=== PATIENT | female | born 1995 | race Caucasian/White ===

== ENCOUNTER 2024-04-24 04:38 | Inpatient (IN) ==
[2024-04-24] MEDS ORDERED: OXYTOCIN 30 UNITS/NSS 30 UNITS/500 ML BAG IV PRN (05:51)
[2024-04-24] MEDS ORDERED: LIDOCAINE 1% LOCAL 20 ML VIAL INFIL PRN (05:51)
--- NOTE | 2024-04-24 05:51 | Obstetrical Progress Note ---
Date of Service April 24, 2024 Assessment & Plan (1) PROM (premature rupture of membranes): Plan: 29yo Go @ 39+ weeks ROM at 03;00 hrs FHR ; CAT1 Ctx Minimal VE; gross pooling. Nitrazine +ve VE 1=2/thick /posterior Bedside sono; VT Plan admit anticipate delivery Results & Data Vital Signs (Past 12 Hours) Vital Signs Temp Pulse Resp BP 04/24/24 04:53 36.9 C 18 04/24/24 04:51 96 H 129/84
[2024-04-24] MEDS: miSOPROStoL 50 MCG TAB PO ONE (06:32)
[2024-04-24 06:34] LABS: Hematocrit (blood only) 39.6 % (37.0-47.0); Hemoglobin 14.1 g/dl (12.0-16.0); Mean Corpuscular Hemoglobin 31.5 pg (25.0-34.0); Mean Corpuscular Hgb Conc 35.6 g/dL (32.0-36.0); Mean Corpuscular Volume 88.4 fL (80.0-100.0); Platelet Count 237 K/uL (130-400); RDW Coefficient of Variation 13.8 % (11.5-14.5); RDW Standard Deviation 44.6 fL (36.4-46.3); Red Blood Count 4.48 M/uL (4.20-5.40); White Blood Count 11.35 K/ul (4.8-10.8)
[2024-04-24] MEDS ORDERED: miSOPROStoL 50 MCG TAB PO SCH (09:00)
[2024-04-24] MEDS: miSOPROStoL 50 MCG TAB ONE (11:29)
--- OUTSIDE RECORDS SUMMARY | 2024-04-24 12:04 | External Medical Summary | Summary of Care ---
Author Name Unknown Organization [facility] Address [address] [place] [address] Phone [phone] Care Team Providers Care Office Assistant Receptionist Name Role Phone Didier Katelyn Ramesh PA-C Primary Care Provider [phone] Reason for Visit * Reason Comments Non Stress Test Encounter Details Date Type Department Care Team (Late st Contact Info) Description 03/06/2024 12:00 PM EDT Office Visit Gynecology/Obstetric s [facility] [address] [facility] [place] [address] Brittani Cleveland CRNP [address] [place] [address] Buzz Non Stress Tests [facility] [address] [facility] [address] Encounter for supervision of normal first in third trimester*; Genital herpes simplex virus (HSV) infection in mother affecting ; Electrocution and nonfatal effects of electric current, initial encounter Allergies No known active allergiesdocumented as of this encounter (statuses as of 03/06/2024) Medications Medication Sig Dispensed Refills Start Date End Date Status valACYclovir (VALTREX) 1000 MG TabletIndications:Ge nital herpes One pill by mouth once a day 30 Tab 11 01/31/2019 Active Additional Information Patient not taking.Reported on 10/03/2023 28-0.8 MG Oral Tablet Take by mouth. Active Breast PumpIndications:Enco unter for supervision of normal first in third trimester For lactating mother to breastfeed 1 Each 02/28/2024 Active documented as of this encounter (statuses as of 03/06/2024) Active Problems Problem Noted Date Diagnosed Date Supervision of normal first 10/06/2023 Genital herpes simplex virus (HSV) infection in mother affecting 10/06/2023 Overview: Valtrex suppression at 36 wks Genital herpes 10/13/2010 Overview: ICD-10 update of inactive term ADVANCE DIRECTIVE INFORMATION 12/04/2006 Overview: Not applicable (under age of 18) Estimated Date of Delivery Comme nts Yes 04/24/2024 Based on Ultraso und documented as of this encounter (statuses as of 03/06/2024) Immunizations Name Administration Dates Next Due COVID-19 mRNA, LNP-s, No Pre serve, 2-Dose Series (Moderna) 02/12/2021,01/14/2021 DTaP Dipth/Tet/Acell Pertussis (Infanrix), Peds 04/08/1998,06/29/1994,1993,07/28,1993 HIB PRP-T, 4 Dose, PF, IM (H iberix, ActHib) 06/29/1994,1993,1993,05/05 Hepatitis B, 0-19 yrs 06/29/1994,1993,07/0 01/1993 MMR - Measles/Mumps/Rubella Vaccine 04/08/1998,1 1993 Meningococcal Conjugate Vacc ine (Menactra/Menveo) 04/29/2009 OPV - Polio Virus Vaccine (Oral) 998,06/29/1994,1993,05/05 PPD 09/08/2021,05/07/2015,12/15/2010 Seasonal Influenza, Split, I IV3, With Preserve, Inj 09/28/2010 TD, Preservative Free 01/31/2019 TDAP (age 10 and older)(Boostrix) 01/31/2024 TDAP, Age 7 and older, IM (Adacel) 12/04/2006 documented as of this encounter Social History Tobacco Use Types Packs/Day Years Used Date Smoking Tobacco: Never Smokeless Tobacco: Never Comments:non smoking home Alcohol Use Standard Drinks/Week Comments Not Currently 0 (1 standard drink = 0.6 oz pur e alcohol) socially AUDIT-C Answer Date Recorded Frequency of Alcohol Consumption 2-4 times a mon01/31/2019 Average Number of Drinks Not on file 019 Frequency of Binge Drinking Not on file 01/2019 PHQ-2 Answer Date Recorded PHQ-2 Score 0 07/01/2018 Hunger Vital Sign Answer Date Recorded Within the past 12 months, y ou worried that your food would run out before you got the money to buy more. Never true 09/24/19 24 Within the past 12 months, t he food you bought just didn't last and you didn't have money to get more. Never true 09/24/2023 [place] Depression Scale Answer Date Recorded [place] Depression Scale Total 2 10/06/2023 The thought of harming myself has occurred to me . Never 10/06/2023 Childcare Answer Date Recorded Do you feel overwhelmed with taking care of a child, family member or friend? No 09/24/2023 Does your family need help f inding childcare? (Household - for ages 0-17 years) Not on file 09/24/2023 Clothing Answer Date Recorded Have you been unable to get clothing when it was really needed? No 09/24/2023 Is your family able to get c lothes or diapers when needed? (Household - for ages 0-17 years) Not on file 09/24/2023 Personal Safety Answer Date Recorded Do you feel unsafe or have concerns for your saf ety? No 09/24/2023 Do you have concerns for you r family's safety? (Household - for ages 0-17 years) Not on file 09/24/2023 Utilities Answer Date Recorded Do you have trouble paying y our heating, water, or electric bill? No 09/24/2023 Is your family able to pay t he heat, water, or electric bill? (Household - for ages 0-17 years) Not on file 09/24/2023 Does your family have access to good internet? (Household - for ages 0-17 years) Not on file 09/24/2023 Employment Status Answer Date Recorded Are you unemployed or without regular income? No 09/24/2023 Does the household have a re gular source of income? (Household - for ages 0-17 years) Not on file 09/24/2023 Social Connections Answer Date Recorded How often do you feel lonely or isolated from th ose around you? Never 09/24/2023 Financial Resource Strain Answer Date R ecorded Do you have any trouble payi ng for your medications, or do you think you might in the future? No 09/24/2023 Does your family have troubl e paying for medicine? (Household - for ages 0-17 years) Not on file 09/24/2023 Transportation Needs Answer Date Record ed READ ONLY Do you have troubl e getting a ride to medical visits or work? Never True 09/24/2023 Does your family have a hard time getting a ride to doctors visits? (Household - for ages 0-17 years) Not on file 09/24/2023 Has lack of transportation k ept you from medical appointments, meetings, work, or from getting things needed for daily living? Check all that apply. (Adult - for ages 18 years and over) Not on file 09/24/2023 Do you (or your family) have trouble finding or paying for a ride (transportation)? (Household - for ages 0-17 years) Not on file 09/24/2023 Housing Stability Answer Date Recorded Do you currently live in a s helter or have no steady place to sleep at night? No 09/24/2023 READ ONLY Do you think you a re at risk of becoming homeless? No 09/24/2023 Does your family worry about paying for your home or becoming homeless? (Household - for ages 0-17 years) Not on file 0 09/24/2023 Are you homeless or worried that you might be in the future? (Adult - for ages 18 years and over) Not on file Are you (or your family) rachel eless or worried that you might be in the future? (Household - for ages 0-17 years) Not on file Food Insecurity Answer Date Recorded Do you need food for this week? No 09/24/2023 Are you able to get enough f ood for your family? (Household - for ages 0-17 years) Not on file 09/24/2023 Does your family need food t his week? (Household - for ages 0-17 years) Not on file 09/24/2023 Do you always have enough fo od for your family? (Household - for ages 0-17 years) Not on file 09/24/2023 Estimated Date of Delivery Comme nts Yes 04/24/2024 Based on Ultraso und Sex and Gender Information Value Date Recorded Sex Assigned at Female 09/24/2023 1:38 PM EST Gender Identity Female 09/24/2023 1:32 PM EST Sexual Orientation Straight 09/24/2023 1: 32 PM EST Job Start Date Occupation Industry Not on file Not on file Not on file documented as of this encounter Progress Notes * Brittani Cleveland CRNP - 03/06/2024 12:18 PM EDT ASSESSMENT assessment with Non-stress Test completed on 03/06/2024 at 33 weeks gestation for indication of electric shock earlier today. Pt was advised by nursing to contact her PCP for follow up recommendations. heart baseline: 130 bpm Variability: Moderate Decelerations: absent Accelerations: present Contractions: None NST start time: 1218 NST stop time: 1244 NST strip reviewed, interpreted, and approved by OB provider, JUVENAL Hayes . NST strip stored in clinic storage file documented in this encounter Plan of Treatment Upcoming Encounters Date Type Department Care Team (Late st Contact Info) Description 03/20/2024 9:45 AM EDT Office Visit Gynecology/Obstetrics [facility] [address] [address] Azra York CRNP [address] [address] Health Maintenance Due Date Last Done Comments HPV (Gardasil) Vaccine (3 - 3-dose series) 08/07/2014 04/16/2014 (Refused), 02/05/2014 (Refused) Depression Screening 07/21/2018 07/21/2017 (Discusse d) HPV/Co-Test 2023 COVID-19 Vaccine ( season) 2023 02/12/2021, 01/14/2021 Influenza Vaccine (FLU shot) (#1) 2024 07/21/2017 (Refused), 09/28/2010 Cervical Cancer Screening 09/08/2024 Pap Smear 09/08/2024 09/08/2021, 06/29, 07/21/2017, Additional history exists DTaP,Tdap,and Td Vaccines (9 - Td or Tdap) 01/30/2034 01/31/2024, 01/31/2019, 12/04/2006, Additional history exists Hepatitis B Vaccine Completed 06/29/1994, 1993, 1993 MENINGOCOCCAL (MENACTRA/MENVEO) Completed 04/29/2009 Pneumococcal Vaccine: Pediatrics (0 to 5 Years) and At-Risk Patients (6 to 64 Years) Aged Out No longer eligible based on patient's age to complete this topic documented as of this encounter Medical Devices Not on filedocumented as of this encounter Visit Diagnoses Diagnosis Encounter for supervision of normal first in third trimester- Primary Supervision of normal first Genital herpes simplex virus (HSV) infection in mother affecting Electrocution and nonfatal effects of electric current, initial encounter documented in this encounter Care Teams Office Assistant Receptionist Relationship Specialty Start Date End Date Katelyn Velásquez PA-C [facility] [address] PCP - General Physician Armored Car Messenger 08/25/21 documented as of this encounter
--- OUTSIDE RECORDS SUMMARY | 2024-04-24 12:04 | External Medical Summary | Summary of Care ---
Author Name Unknown Organization [facility] Address [address] [place] [address] Phone [phone] Care Team Providers Care Parboiler Name Role Phone Didier Katelyn Ramesh PA-C Primary Care Provider [phone] Reason for Visit * Reason Comments Return Visit Encounter Details Date Type Department Care Team (Late st Contact Info) Description 03/20/2024 9:45 AM EDT Office Visit Gynecology/Obstetric s [facility] [address] [facility] [place] [address] Azra York CRNP [address] [place] [facility] [address] Encounter for supervision of normal first in third trimester*; Genital herpes simplex, unspecified site Allergies No known active allergiesdocumented as of this encounter (statuses as of 03/20/2024) Medications Medication Sig Dispensed Refills Start Date End Date Status 28-0.8 MG Oral Tablet Take by mouth. Active Breast PumpIndications:E ncounter for supervision of normal first in third trimester For lactating mother to breastfeed 1 Each 02/28/2024 Active valACYclovir HCl 500 MG Oral Tablet (Valtrex)Indicati ons:Genital herpes simplex, unspecified site Take 1 Tablet by mouth 2 times a day. 60 Tablet 2 03/20/2024 Active valACYclovir (VALTREX) 1000 MG TabletIndications :Genital herpes One pill by mouth once a day 30 Tab 11 01/31/2019 07/24/202 4 Discontinued documented as of this encounter (statuses as of 03/20/2024) Active Problems Problem Noted Date Diagnosed Date [...] as of this encounter (statuses as of 03/20/2024) Immunizations Name Administration Dates Next Due COVID-19 [...] money to get more. Never true 09/24/2023 [place] Depression Scale Answer Date Recorded [place] Depression Scale Total 2 10/06/2023 The thought [...] on file documented as of this encounter Last Filed Vital Signs Vital Sign Reading Time Taken Comments Blood Pressure 104/68 03/20/2024 9:45 AM EDT Pulse - - Temperature - - Respiratory Rate - - Oxygen Saturation - - Inhaled Oxygen Concentration - - Weight 78.5 kg (173 lb) 03/20/2024 9:45 AM EDT Height 162.6 cm (5' 4") 03/20/2024 9:45 AM EDT Body Mass Index 29.7 03/20/2024 9:45 AM EDT documented in this encounter Progress Notes * Azra York CRNP - 03/20/2024 10:11 AM EDT 35w No concerns. Baby is active. No cotnractions, bleeding, LOF. Valtrex sent to pharmacy, to begin taking BID next week. JUVENAL Edwards documented in this encounter Nursing Notes * Magdalena Adame LPN - 03/20/2024 9:49 AM EDT 35w0d Denies concerns documented in this encounter Plan of Treatment Upcoming Encounters Date Type Department Care Team (Late st Contact Info) Description 03/28/2024 1:15 PM EDT Office Visit Gynecology/Obstetrics [facility] [address] [place] [address] Rach Arias MD [address] [place] [id number] Health Maintenance Due Date Last Done Comments HPV (Gardasil) Vaccine (3 - 3-dose series) 08/07/2014 04/16/2014 (Refused), 02/05/2014 (Refused) Depression Screening 07/21/2018 07/21/2017 (Discusse d) HPV/Co-Test 2023 COVID-19 Vaccine (2022- season) 2023 02/12/2021, 01/14/2021 Influenza Vaccine (FLU [...] Primary Supervision of normal first Genital herpes simplex, unspecified site documented in this encounter Care Teams Parboiler Relationship Specialty Start Date End Date Didier Katelyn SONALI Ramesh [address] [place] [address] PCP - General Physician Local Hazmat Driver 08/25/21 documented as of this encounter
--- OUTSIDE RECORDS SUMMARY | 2024-04-24 12:04 | External Medical Summary ---
Author Name Unknown Address Unknown Organization K01:[facility] - [facility] [address] [place] [address] Laboratory Report Ordering Provider Test Date Status EROS ALMEIDA 03/28/2024 14:06:20 Final Observation Date Value Abnormality Reference (Units ) Status Streptococcus agalactiae DNA [Presence] in Specimen by DG with probe detection 03/28/2024 14:06:20 Negative Negative Final No Group B Streptococcus det ected by culture-enhanced PCR (amplified probe). GBS GBSCT - [facility] 03/28/2024 14:06:20 0.0 Final GBS SPCCT - [facility] 03/28/2024 14:06:20 31.5 Final Performing Location [facility] - [address] [place] [address]
--- OUTSIDE RECORDS SUMMARY | 2024-04-24 12:04 | External Medical Summary | Summary of Care ---
Author Name Unknown Organization [facility] Address [address] [place] [address] Phone [phone] Care Team Providers Care Multiple Tube Winding Machine Operator Name Role Phone Katelyn Velásquez PA-C Primary Care Provider [phone] Reason for Visit * Reason Onset Date Comments Leaking Fluid 04/24/2024 Encounter Details Date Type Department Care Team (Late st Contact Info) Description 04/24/2024 Telephone Gynecology/Obstetrics, [place] [address] [place] [address] Lula Chand, [facility] [address] [place] [address] Leaking Fluid Allergies No known active allergiesdocumented as of this encounter (statuses as of 04/24/2024) Medications Medication Sig Dispensed Refills Start Date End Date Status 28-0.8 MG Oral Tablet Take by mouth. Active Breast PumpIndications:Enco unter for supervision of normal first in third trimester For lactating mother to breastfeed 1 Each 02/28/2024 Active valACYclovir HCl 500 MG Oral Tablet (Valtrex)Indications :Genital herpes simplex, unspecified site Take 1 Tablet by mouth 2 times a day. 60 Tablet 2 03/20/2024 Active documented as of this encounter (statuses as of 04/24/2024) Active Problems Problem Noted Date Diagnosed Date [...] as of this encounter (statuses as of 04/24/2024) Immunizations Name Administration Dates Next Due COVID-19 [...] Frequency of Alcohol Consumption 2-4 times a mon 01/31/2019 Average Number of Drinks Not on file [...] money to get more. Never true 09/24/2023 [place] Depression Scale Answer Date Recorded [place] Depression Scale Total 2 10/06/2023 The thought [...] do you feel lonely or isolated from ose around you? Never 09/24/2023 Financial Resource [...] on file documented as of this encounter Miscellaneous Notes * Telephone Encounter - Lula Chand CNM - 04/24/2024 3:10 AM EDT Patient called the [facility] OB triage line with concern that her water broke. State she woke up to use the bathroom, voided, leaned back and "all of the sudden this extra big gush came out." She laid backdown and had another gush. States the fluid had "just a little bit of blood" in it. The fluid has continued to trickle, but is no longer bloody. Denies any contractions. States she had some pressure in the pelvic area yesterday evening. She is uncertain about movement at this exact moment butstates movement has been good up until now. She plans delivery at [facility]. Lives 30-45 minutes from [facility]. She lives further from [facility]. Recommended patient proceed to [facility] L+D now. Patient agreeable. I called [facility] L+D and spoke with staff member Sabrina. Julio Text message sent to Dr. Mar at 3:21am. Lula Chand CNM 04/24/24 3:23 AM documented in this encounter Plan of Treatment Upcoming Encounters Date Type Department Care Team (Late st Contact Info) Description 04/26/2024 10:45 AM EDT Office Visit Gynecology/Obstetrics [facility] [address] [place] [address] Azra York CRNP [address] [place] [place] [address] Health Maintenance Due Date Last Done Comments HPV (Gardasil) Vaccine (3 - 3-dose series) 08/07/2014 04/16/2014 (Refused), 02/05/2014 (Refused) Depression Screening 07/21/2018 07/21/2017 (Discusse d) HPV/Co-Test 2023 COVID-19 Vaccine ( season) 2023 02/12/2021, 01/14/2021 Influenza Vaccine (FLU shot) (#1) 2024 07/21/2017 (Refused), 09/28/2010 Cervical Cancer Screening 09/08/2024 Pap Smear 09/08/2024 09/08/2021, 06/29, 07/21/2017, Additional history exists DTap/Tdap Vaccines (9 - Td or Tdap) 01/30/2034 [...] Not on filedocumented as of this encounter Care Teams Multiple Tube Winding Machine Operator Relationship Specialty Start Date End Date DidierNovember SONALI Ramesh [address] [place] [address] PCP - General Physician Weigher Alloy 08/25/21 documented as of this encounter
--- OUTSIDE RECORDS SUMMARY | 2024-04-24 12:04 | External Medical Summary | Summary of Care ---
Author Name Unknown Organization [facility] Address [address] [place] [address] Phone [phone] Care Team Providers Care Pearl Stringer Name Role Phone Didier Katelyn Ramesh PA-C Primary Care Provider [phone] Reason for Visit * Reason Comments Return Visit Encounter Details Date Type Department Care Team (Late st Contact Info) Description 04/18/2024 12:15 PM EDT Office Visit Gynecology/Obstetric s [facility] [address] [facility] [place] [address] Azra York CRNP [address] [address] Encounter for supervision of normal first in third trimester*; Genital herpes simplex virus (HSV) infection in mother affecting Allergies No known active allergiesdocumented as of this encounter (statuses as of 04/18/2024) Medications Medication Sig Dispensed Refills Start Date [...] as of this encounter (statuses as of 04/18/2024) Active Problems Problem Noted Date Diagnosed Date [...] as of this encounter (statuses as of 04/18/2024) Immunizations Name Administration Dates Next Due COVID-19 mRNA, LNP-s, No Pre serve, 2-Dose Series (Moderna) 02/12/2021,01/14/2021 DTaP Dipth/Tet/Acell Pertussis (Infanrix), Peds 04/08/1998,06/29/1994,1993,07/28,1993 HIB PRP-T, 4 Dose, PF, IM (H iberix, ActHib) 06/29/1994,1993,1993,05/05 Hepatitis B, 0-19 yrs 06/29/1994,1993,1993 MMR - Measles/Mumps/Rubella Vaccine 04/08/1998,1 1993 Meningococcal [...] money to get more. Never true 09/24/2023 [place] Depression Scale Answer Date Recorded [place] Depression Scale Total 2 10/06/2023 The thought [...] Sign Reading Time Taken Comments Blood Pressure 102/68 04/18/2024 12:27 PM EDT Pulse - - Temperature - - Respiratory Rate - - Oxygen Saturation - - Inhaled Oxygen Concentration - - Weight 83.5 kg (184 lb) 04/18/2024 12:27 PM EDT Height - - Body Mass Index 31.58 03/20/2024 9:45 AM EDT documented in this encounter Progress Notes * Azra York CRNP - 04/18/2024 12:38 PM EDT 39w1d Has no concerns today. Some pelvic pressure/heaviness. Baby is active. No regular contractions. Denies bleeding, LOF. Taking valtrex as directed. IOL 05/01. JUVENAL Edwards * Candida Albarran LPN - 04/18/2024 12:27 PM EDT 39w1d Denies vaginal bleeding/rom + movement documented in this encounter Plan of Treatment Upcoming Encounters Date Type Department Care Team (Late st Contact Info) Description 04/26/2024 10:45 AM EDT Office Visit Gynecology/Obstetrics [facility] [address] [address] Azra York CRNP [address] [place] [address] Health Maintenance Due Date Last Done Comments HPV (Gardasil) Vaccine (3 - 3-dose series) 08/07/2014 04/16/2014 (Refused), 02/05/2014 (Refused) Depression Screening 07/21/2018 07/21/2017 (Discusse d) HPV/Co-Test 2023 COVID-19 Vaccine (3 - season) 2023 02/12/2021, 01/14/2021 Influenza Vaccine (FLU [...] simplex virus (HSV) infection in mother affecting documented in this encounter Care Teams Pearl Stringer Relationship Specialty Start Date End Date Katelyn Velásquez PA-C [address] [place] [address] PCP - General Physician Utilization Coordinator 08/25/21 documented as of this encounter
--- OUTSIDE RECORDS SUMMARY | 2024-04-24 12:04 | External Medical Summary | Summary of Care ---
Author Name Unknown Organization [facility] Address [address] [place] [address] Phone [phone] Care Team Providers Care Roll Grinder Operator Name Role Phone Katelyn Velásquez PA-C Primary Care Provider [phone] Reason for Visit * Reason Comments Return Visit Encounter Details Date Type Department Care Team ([facility] st Contact Info) Description 03/28/2024 1:15 PM EDT Office Visit Gynecology/Obstetric [facility] [address] [facility] [place] [address] Rach Arias MD [address] [facility] [place] [address] 36 weeks gestation of *; Genital herpes simplex virus (HSV) infection in mother affecting Allergies No known active allergiesdocumented as of this encounter (statuses as of 03/28/2024) Medications Medication Sig Dispensed Refills Start Date [...] as of this encounter (statuses as of 03/28/2024) Active Problems Problem Noted Date Diagnosed Date [...] as of this encounter (statuses as of 03/28/2024) Immunizations Name Administration Dates Next Due COVID-19 [...] money to get more. Never true 09/24/2023 [place] Depression Scale Answer Date Recorded [place] Depression Scale Total 2 10/06/2023 The thought [...] Sign Reading Time Taken Comments Blood Pressure 110/74 03/28/2024 1:47 PM EDT Pulse - - Temperature - - Respiratory Rate - - Oxygen Saturation - - Inhaled Oxygen Concentration - - Weight 80.3 kg (177 lb) 03/28/2024 1:47 PM EDT Height - - Body Mass Index 30.38 03/20/2024 9:45 AM EDT documented in this encounter Progress Notes * Rach Arias MD - 03/28/2024 1:51 PM EDT Rola Knox is a 29 year old female here for her routine OB appointment at 36w1d. Patient complains of pelvic pressure. Her Estimated Date of Delivery: 04/24/24 REVIEW OF SYSTEMS: She affirms movement. Denies vaginal bleeding, LOF, regular contractions, N/V, headaches [place] Depression Scale: No data recorded [place] suicide question and score: Score of 3 = Yes, quite often. Score of 2 = Sometimes. Score of 1 = Hardly ever No data recorded PHYSICAL EXAM: Filed Vitals: 03/28/24 1347 BP: 110/74 Weight: 80.3 kg (177 lb) +FHT 154 bpm Fundal height 38cm ASSESSMENT/PLAN: (O98.319, A60.09) Genital herpes simplex virus (HSV) infection in mother affecting Plan: Patient is taking valtrex. (Z3A.36) 36 weeks gestation of (primary encounter diagnosis) Plan: GROUP B STREP CULTURE/PCR - Figurine Maker Mattie Claros - labor precautions and kick counts reviewed - RTO in 1 week Rach Arias MD * Mattie Claros MED ASSIST - 03/28/2024 1:47 PM EDT 36w1d Increased pelvic pressure GBS today documented in this encounter Plan of Treatment Pending Results Name Type Priority Associated Diagnoses Date /Time GROUP B STREP CULTURE/PCR Lab Routine 36 weeks gestation of 03/28/2024 2:06 PM EDT Scheduled Orders Name Type Priority Associated Diagnoses Orde r Schedule GROUP B STREP CULTURE/PCR Lab Routine 36 weeks gestation of Expected: 03/28/2024, Expires: 03/28/2025 Health Maintenance Due Date Last Done Comments [...] as of this encounter Visit Diagnoses Diagnosis 36 weeks gestation of - Primary state, incidental Genital herpes simplex virus (HSV) infection in mother affecting documented in this encounter Care Teams Roll Grinder Operator Relationship Specialty Start Date End Date Didier November Domitila, SONALI [address] [place] [address] PCP - General Physician Estimator And Drafter 08/25/21 documented as of this encounter
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
--- OUTSIDE RECORDS SUMMARY | 2024-04-24 12:05 | External Medical Summary | Summary of Care ---
Author Name Unknown Organization [facility] Address [address] [place] [address] Phone [phone] Care Team Providers Care Sample Prep Technician Name Role Phone Katelyn Velásquez PA-C Primary Care Provider [phone] Reason for Visit * Reason Onset Date Comments Advice 08/24/2023 Encounter Details Date Type Department Care Team ([facility] st Contact Info) Description 08/24/2023 Telephone Family Practice [facility] [address] [place] [address] Katelyn Velásquez PA-C [address] [place] [address] Advice Allergies No known active allergiesdocumented as of this encounter (statuses as of 11/23/2023) Medications Medication Sig Dispensed Refills Start Date End Date Status valACYclovir (VALTREX) 1000 MG TabletIndications:Ge nital herpes One pill by mouth once a day 30 Tab 11 01/31/2019 Active Additional Information Patient not taking.Reported on 10/03/2023 documented as of this encounter (statuses as of 11/23/2023) Active Problems Problem Noted Date Diagnosed Date Supervision of normal first 10/06/2023 Genital herpes simplex virus (HSV) infection in mother affecting 10/06/2023 Overview: Valtrex suppression at 36 wks Genital herpes 10/13/2010 Overview: ICD-10 update of inactive term ADVANCE DIRECTIVE INFORMATION 12/04/2006 Overview: Not applicable (under age of 18) documented as of this encounter (statuses as of 11/23/2023) Immunizations Name Administration Dates Next Due COVID-19 mRNA, LNP-s, No Pre serve, 2-Dose Series (Moderna) 02/12/2021,01/14/2021 DTaP Dipth/Tet/Acell Pertussis (Infanrix), Peds 04/08/1998,06/29/1994,1993,07/28,1993 HIB PRP-T, 4 dose (ActHib) 06/29/1994,,1993,05/05 Hepatitis B, 0-19 yrs 06/29/1994,1993,07/0 01/1993 MMR - Measles/Mumps/Rubella Vaccine 04/08/1998,1 1993 Meningococcal Conjugate Vacc ine (Menactra/Menveo) 04/29/2009 OPV - Polio Virus Vaccine (Oral) 998,06/29/1994,1993,05/05 PPD 09/08/2021,05/07/2015,12/15/2010 Seasonal Influenza, Split, I IV3, With Preserve, Inj 09/28/2010 TD, Preservative Free 01/31/2019 TDAP (age 11 and older)(Adacel) 12/04/2006 documented as of this encounter Social History Tobacco Use Types Packs/Day Years Used Date Smoking Tobacco: Never Smokeless Tobacco: Never Comments:non smoking home Alcohol Use Standard Drinks/Week Comments Yes 0 (1 standard drink = 0.6 oz [...] the money to buy more. Never true 01/28/20 24 Within the past 12 months, t he food you bought just didn't last and you didn't have money to get more. Never true 09/24/2023 [place] Depression Scale Answer Date Recorded [place] Depression Scale Total 2 10/06/2023 The thought of harming myself has occurred to me . Never 10/06/2023 Sex and Gender Information Value Date Recorded Sex Assigned at Female 09/24/2023 1:38 PM EST Gender Identity Female 09/24/2023 1:32 PM EST Sexual Orientation Straight 09/24/2023 1: 32 PM EST Job Start Date Occupation Industry Not on file Not on file Not on file documented as of this encounter Miscellaneous Notes * Telephone Encounter - Nydia Matthew OSA - 08/25/2023 11:15 AM EST Patient has been notified of the message. Patient has no further questions. * Telephone Encounter - Katelyn Velásquez PA-C - 08/24/2023 7:13 PM EST Over the counter could try dramamine * Telephone Encounter - Nydia Matthew OSA - 08/24/2023 2:55 PM EST Pt called inquiring for advice on what would be the best medication to take for anxiety for a planeride? Would like a call back documented in this encounter Plan of Treatment Upcoming Encounters Date Type Department Care Team (Late st Contact Info) Description 12/01/2023 10:45 AM EDT Imaging Radiology [facility] [address] [address] 12/01/2023 11:45 AM EDT Office Visit Gynecology/Obstetrics [facility] [address] [place] [address] Lory Ron PA-C [address] [place] [address] Health Maintenance Due Date Last Done Comments GARDASIL-HPV IMMUNIZATION SERIES (3 - 3-dose series) 08/07/2014 04/16/2014 (Refused), 02/05/2014 (Refused) Depression Screening 07/21/2018 07/21/2017 (Discusse d) HPV/Co-Test 2023 COVID-19 Vaccine ( season) 2023 02/12/2021, 01/14/2021 Influenza Vaccine (FLU shot) (#1) 2023 07/21/2017 (Refused), 09/28/2010 Cervical Cancer Screening 09/08/2024 Pap Smear 09/08/2024 09/08/2021, 06/29, 07/21/2017, Additional history exists DTaP,Tdap,and Td Vaccines (8 - Td or Tdap) 01/31/2029 01/31/2019, 12/04/2006, 04/08/1998, Additional history exists Hepatitis B Completed 06/29/1994, 03/1993, 1993 MENINGOCOCCAL (MENACTRA/MENVEO) Completed 04/29/2009 Pneumococcal Vaccine: Pediatrics (0 to 5 Years) and At-Risk Patients (6 to 64 Years) Aged Out No longer eligible based on patient's age to complete this topic documented as of this encounter Medical Devices Not on filedocumented as of this encounter Care Teams Sample Prep Technician Relationship Specialty Start Date End Date Didier Katelyn SONALI Ramesh [address] [place] [address] PCP - General Physician Grey Tender 08/25/21 documented as of this encounter
--- OUTSIDE RECORDS SUMMARY | 2024-04-24 12:05 | External Medical Summary ---
Author Name Unknown Address Unknown Organization K01:[facility] [address] [place] [address] Laboratory Report Ordering Provider Test Date Status ANDREWURBANO 01/31/2024 11:23:26 Final Observation Date Value Abnormality Reference (Units ) Status SYNC LEUKOCYTES IN BLOOD BY AUTOMATED COUNT 01/31/2024 11:23:26 11.68 Above high normal 4.00-10.80 (K/uL) Final Segs 01/31/2024 11:23:26 70.3 40.0-75.0 (%) Final Lymphs % 01/31/2024 11:23:26 18.1 18.0-42.0 (%) Final Monos 01/31/2024 11:23:26 7.2 1.0-11.0 (%) Final Eosinophils 01/31/2024 11:23:26 2.7 0.0-6.0 (%) Final Basos 01/31/2024 11:23:26 0.4 0.0-2.0 (%) Final Immature Granulocyte, Percent 01/31/2024 11:23:26 1.3 0.0-2.0 (%) Final Absolute Segs 01/31/2024 11:23:26 8.22 Above high normal 1.80-7.70 (K/uL) Final Lymphs, absolute 01/31/2024 11:23:26 2.11 1.00-4.80 (K/ul) Final Monos, Abs 01/31/2024 11:23:26 0.84 0.00-1.10 (K/uL) Final Eos, Abs 01/31/2024 11:23:26 0.31 0.00-0.70 (K/uL) Final Basos, Abs 01/31/2024 11:23:26 0.05 0.00-0.20 (K/uL) Final Immature Granulocytes, Number 01/31/2024 11:23:26 0.15 0.00-0.20 (K/uL) Final Performing Location [facility] - [address] [facility] [address]
--- OUTSIDE RECORDS SUMMARY | 2024-04-24 12:05 | External Medical Summary | Summary of Care ---
Author Name Unknown Organization [facility] Address [address] [place] [address] Phone [phone] Care Team Providers Care Roller Skate Assembler Name Role Phone Didier Katelyn Ramesh PA-C Primary Care Provider [phone] Reason for Visit * Reason Comments Return Visit Encounter Details Date Type Department Care Team (Late st Contact Info) Description 11/03/2023 11:45 AM EST Office Visit Gynecology/Obstetric s [facility] [address] [place] [address] Lory Ron PA-C [address] [facility] [place] [address] Encounter for supervision of other normal in second trimester*; Genital herpes simplex virus (HSV) infection in mother affecting Allergies No known active allergiesdocumented as of this encounter (statuses as of 11/03/2023) Medications Medication Sig Dispensed Refills Start Date End Date Status valACYclovir (VALTREX) 1000 MG TabletIndications:Ge nital herpes One pill by mouth once a day 30 Tab 11 01/31/2019 Active Additional Information Patient not taking.Reported on 10/03/2023 28-0.8 MG Oral Tablet Take by mouth. 0 Active documented as of this encounter (statuses as of 11/03/2023) Active Problems Problem Noted Date Diagnosed Date [...] as of this encounter (statuses as of 11/03/2023) Immunizations Name Administration Dates Next Due COVID-19 [...] money to get more. Never true 09/24/2023 [place] Depression Scale Answer Date Recorded [place] Depression Scale Total 2 10/06/2023 The thought of harming myself has occurred to me . Never 10/06/2023 Estimated Date of Delivery Comme nts Yes [...] Sign Reading Time Taken Comments Blood Pressure 104/76 11/03/2023 11:37 AM EST Pulse - - Temperature - - Respiratory Rate - - Oxygen Saturation - - Inhaled Oxygen Concentration - - Weight 69.9 kg (154 lb) 11/03/2023 11:37 AM EST Height 162.6 cm (5' 4") 11/03/2023 11:37 AM EST Body Mass Index 26.43 11/03/2023 11:37 AM EST documented in this encounter Progress Notes * Lory Ron PA-C - 11/03/2023 12:04 PM EST 15w2d Denies concerns. Declines genetic testing including NIPT and MSAFP at this time. Plan for anatomy next visit 19-20 wks RTC in 4 weeks Lory Ron PA-C documented in this encounter Plan of Treatment Upcoming Encounters Date Type Department Care Team (Late st Contact Info) Description 12/01/2023 10:45 AM EDT Imaging Radiology [address] [place] [address] 12/01/2023 11:45 AM EDT Office Visit Gynecology/Obstetrics [facility] [address] [place] [address] Lory Ron PA-C [address] [place] [address] Scheduled Orders Name Type Priority Associated Diagnoses Orde r Schedule US PREG SINGLE/1ST GEST, 14 WEEKS OR LATER Medical Imaging Routine Encounter for supervision of other normal in second trimester Expected: 12/04/2023, Expires: 12/03/2024 Health Maintenance Due Date Last Done Comments [...] Visit Diagnoses Diagnosis Encounter for supervision of other normal in second trimester- Primary Genital herpes simplex virus (HSV) infection in mother affecting documented in this encounter Care Teams Roller Skate Assembler Relationship Specialty Start Date End Date Katelyn Velásquez PA-C [address] [place] [address] PCP - General Physician Sheet Metal Duct Installer Apprentice 08/25/21 documented as of this encounter
--- OUTSIDE RECORDS SUMMARY | 2024-04-24 12:05 | External Medical Summary | Summary of Care ---
Author Name Unknown Organization [facility] Address [address] [place] [address] Phone [phone] Care Team Providers Care French Translator Name Role Phone Katelyn Velásquez PA-C Primary Care Provider [phone] Reason for Referral * Evaluate & Treat - Unlimited Visits (Within 10 days (routine)) - Pending Review Specialty Diagnoses / Procedures Referred By Ramon ulloa Referred To Contact Behavioral Medicine / Psychology Diagnoses Supervision of normal first Lula Chand CNM [address] [place] [address] DEPT CLOSED - 06/30/22 [address] [place] [address] Referral ID Status Reason Start Date Expiration Date Visits Requested Visits Authorized [id number] Pending Review Specialty Services Required 01/01/[phone] Question Answer Referral Priority Within 10 days (routine) [facility] this [facility] be scheduled? [facility] Comments Patient struggling with weight gain, body changes, body image in as she is fit and has always been thin prior to . Reason for Visit * Reason Comments Return Visit Encounter Details Date Type Department Care Team (Late st Contact Info) Description 01/01/2024 1:45 PM EDT Office Visit Gynecology/Obstetric s [address] [place] [address] Chand, Lula E, [address] [place] [address] Encounter for supervision of normal first in third trimester*; Genital herpes simplex virus (HSV) infection in mother affecting Allergies No known active allergiesdocumented as of this encounter (statuses as of 01/01/2024) Medications Medication Sig Dispensed Refills Start Date End Date Status valACYclovir (VALTREX) 1000 MG TabletIndications:Ge nital herpes One pill by mouth once a day 30 Tab 11 01/31/2019 Active Additional Information Patient not taking.Reported on 10/03/2023 28-0.8 MG Oral Tablet Take by mouth. 0 Active documented as of this encounter (statuses as of 01/01/2024) Active Problems Problem Noted Date Diagnosed Date [...] as of this encounter (statuses as of 01/01/2024) Immunizations Name Administration Dates Next Due COVID-19 mRNA, LNP-s, No Pre serve, 2-Dose Series (Moderna) 02/12/2021,01/14/2021 DTaP Dipth/Tet/Acell Pertussis (Infanrix), Peds 04/08/1998,06/29/1994,1993,07/28,1993 HIB PRP-T, 4 dose (ActHib) 06/29/1994,,1993,05/05 Hepatitis B, 0-19 yrs 06/29/1994,1993,01/1993 MMR - Measles/Mumps/Rubella Vaccine 04/08/1998,1 1993 Meningococcal [...] money to get more. Never true 09/24/2023 [place] Depression Scale Answer Date Recorded [place] Depression Scale Total 2 10/06/2023 The thought [...] Sign Reading Time Taken Comments Blood Pressure 112/62 01/01/2024 1:56 PM EDT Pulse - - Temperature - - Respiratory Rate - - Oxygen Saturation - - Inhaled Oxygen Concentration - - Weight 74.4 kg (164 lb) 01/01/2024 1:56 PM EDT Height - - Body Mass Index 28.15 12/01/2023 11:02 AM EDT documented in this encounter Progress Notes * Lula Chand CNM - 01/01/2024 2:05 PM EDT Rola Knox is a 28 year old female here for her routine OB appointment at 23w5d Her Estimated Date of Delivery: 04/24/24 REVIEW OF SYSTEMS: She affirms movement. Denies vaginal bleeding, LOF, contractions, N/V, headaches, vision changes, and RUQ pain. Asking about mental health and weight gain. She is anxious about the bodily changes as she feels that she is only just over jail through . Works on a horse farm. Has always been fit and thin. Reports rectal itching which has resolved. PHYSICAL EXAM: Filed Vitals: 01/01/24 1356 BP: 112/62 Weight: 74.4 kg (164 lb) +FHT 140-150bpm Fundal height: 24cm ASSESSMENT/PLAN: (O98.319, A60.09) Genital herpes simplex virus (HSV) infection in mother affecting (Z34.00) Supervision of normal first (primary encounter diagnosis) Plan: - reviewed and ordered GTT, syphilis screen, and CBC for patient to complete between now and her next visit - reviewed recommendation for tdap vaccine at next visit - women's behavioral health referral placed -recommended childbirth education classes - RTO in 4 weeks Lula Chand CNM documented in this encounter Plan of Treatment Upcoming Encounters Date Type Department Care Team (Late st Contact Info) Description 01/31/2024 10:00 AM EDT Laboratory Laboratory, [facility] [address] [id number] Gudelia [facility] [address] [place] [address] 01/31/2024 10:30 AM EDT Office Visit Gynecology/Obstetrics [facility] [address] [place] [address] Azra York CRNP [address] [place] [address] Scheduled Orders Name Type Priority Associated Diagnoses Orde r Schedule CBC WITH WBC DIFFERENTIAL AND ANEMIA REFLEX WORKUP Lab Routine Encounter for supervision of normal first in third trimester Expected: 02/01/2024 (Approximate), Expires: 12/31/2024 SYPHILIS ANTIBODY SCREEN WITH REFLEX TO RPR Lab Routine Encounter for supervision of normal first in third trimester Expected: 02/01/2024 (Approximate), Expires: 12/31/2024 50-G GESTATIONAL GLUCOSE, 1 HOUR Lab Routine Encounter for supervision of normal first in third trimester Expected: 02/01/2024 (Approximate), Expires: 12/31/2024 Scheduled Referrals Name Type Priority Associated Diagnoses Orde r Schedule [facility]OM[facility]'S [facility]AL [facility] REFERRAL OP Referral Within 10 days (routine) Encounter for supervision of normal first in third trimester Ordered: 01/01/2024 Health Maintenance Due Date Last Done Comments GARDASIL-HPV IMMUNIZATION SERIES (3 - 3-dose series) 08/07/2014 04/16/2014 (Refused), 02/05/2014 (Refused) Depression Screening 07/21/2018 07/21/2017 (Discusse d) HPV/Co-Test 2023 COVID-19 Vaccine ( season) 2023 02/12/2021, 01/14/2021 Influenza Vaccine (FLU shot) (Season Ended) 2024 07/21/2017 (Refused), 09/28/2010 Cervical Cancer Screening [...] affecting documented in this encounter Care Teams French Translator Relationship Specialty Start Date End Date Didier Katelyn SONALI Ramesh [address] [place] [address] PCP - General Physician Mechanical Engineering Technologist 08/25/21 documented as of this encounter
--- OUTSIDE RECORDS SUMMARY | 2024-04-24 12:05 | External Medical Summary | Summary of Care ---
Author Name Unknown Organization [facility] Address [address] [place] [address] Phone [phone] Care Team Providers Care Manager Ob Name Role Phone Didier Katelyn Ramesh PA-C Primary Care Provider [phone] Reason for Visit * Reason Comments Return Visit Encounter Details Date Type Department Care Team (Late st Contact Info) Description 01/31/2024 10:30 AM EDT Office Visit Gynecology/Obstetric s [facility] [address] [facility] [place] [address] Azra York CRNP [address] [place] [facility] [address] Encounter for supervision of normal first in third trimester*; Genital herpes simplex virus (HSV) infection in mother affecting Allergies No known active allergiesdocumented as of this encounter (statuses as of 01/31/2024) Medications Medication Sig Dispensed Refills Start Date End Date Status valACYclovir (VALTREX) 1000 MG TabletIndications:Ge nital herpes One pill by mouth once a day 30 Tab 11 01/31/2019 Active Additional Information Patient not taking.Reported on 10/03/2023 28-0.8 MG Oral Tablet Take by mouth. Active documented as of this encounter (statuses as of 01/31/2024) Active Problems Problem Noted Date Diagnosed Date [...] as of this encounter (statuses as of 01/31/2024) Immunizations Name Administration Dates Next Due COVID-19 [...] money to get more. Never true 09/24/[address] Depression Scale Answer Date Recorded [address] Depression Scale Total 2 10/06/2023 The thought [...] Sign Reading Time Taken Comments Blood Pressure 116/66 01/31/2024 10:22 AM EDT Pulse - - Temperature - - Respiratory Rate - - Oxygen Saturation - - Inhaled Oxygen Concentration - - Weight 77.6 kg (171 lb) 01/31/2024 10:22 AM EDT Height - - Body Mass Index 29.35 12/01/2023 11:02 AM EDT documented in this encounter Progress Notes * Azra York CRNP - 01/31/2024 10:36 AM EDT 28w0d Complaints: none Feeling well. Good FM. No contractions, bleeding, or LOF. TDAP, Glucola today. JUVENAL Edwards * Mattie Claros, MED ASSIST - 01/31/2024 10:22 AM EDT 28w0d Agreeable to TDAP today No concerns Vaginal bleeding: no ROM: no movement: present Contractions: no Nausea: no Vomiting: no Headaches: no documented in this encounter Nursing Notes * Magdalena Adame LPN - 01/31/2024 10:33 AM EDT Patient here for tdap injection. Patient doing well no complaints. Injection given IM as ordered. Patient tolerated well. Patient to follow up as directed. Patient instructed to call if any complications. Patient verbalized understanding of instructions given and her follow up appt for CHRISTINE Injection site: Left Deltoid Medication Source: Dispensed stock medication documented in this encounter Plan of Treatment Upcoming Encounters Date Type Department Care Team (Late st Contact Info) Description 02/14/2024 8:45 AM EDT [facility] [address] [place] [address] Brittani Cleveland CRNP [address] [place] [address] Health Maintenance Due Date Last Done Comments [...] 01/31/2019, 12/04/2006, Additional history exists Hepatitis B Completed 06/29/1994, [...] affecting documented in this encounter Care Teams Manager Ob Relationship Specialty Start Date End Date Didier November Domitila, [place] [place] [address] PCP - General Physician Patient Care Associate 08/25/21 documented as of this encounter
--- OUTSIDE RECORDS SUMMARY | 2024-04-24 12:05 | External Medical Summary ---
Author Name Unknown Address Unknown Organization [id number]:[place] [facility] [place] [address] [place] [address] Laboratory Report Ordering Provider Test Date Status JAI ALLEN 01/31/2024 11:23:26 Final Observation Date Value Abnormality Reference (Units ) Status MYCODE SPECIMEN-SST 01/31/2024 11:23:26 Freezing of extracted DNA, whole blood and/or serum. Final Performing Location LABORATORY C - [address] [place] [address]
--- OUTSIDE RECORDS SUMMARY | 2024-04-24 12:05 | External Medical Summary ---
Author Name Unknown Address Unknown Organization [id number]:LABORATORY [facility] [place] [address] [place] [address] Laboratory Report Ordering Provider Test Date Status JAI ALLEN 01/31/2024 11:23:26 Final Observation Date Value Abnormality Reference (Units ) Status MYCODE SPECIMEN-SST 01/31/2024 11:23:26 Freezing of extracted DNA, whole blood and/or serum. Final Performing Location [facility] - [address] [place] [address]
--- OUTSIDE RECORDS SUMMARY | 2024-04-24 12:05 | External Medical Summary | Summary of Care ---
Author Name Unknown Organization [facility] Address [address] [place] [address] Phone [phone] Care Team Providers Care Cinder Crew Worker Name Role Phone Didier Katelyn Ramesh PA-C Primary Care Provider [phone] Reason for Visit * Reason Comments Return Visit Encounter Details Date Type Department Care Team (Late st Contact Info) Description 02/14/2024 8:45 AM EDT Office Visit Gynecology/Obstetric s [facility] [address] [place] [address] Brittani Cleveland CRNP [address] [place] [address] Encounter for supervision of normal first in third trimester*; Genital herpes simplex virus (HSV) infection in mother affecting ; Pain in left lower leg Allergies No known active allergiesdocumented as of this encounter (statuses as of 02/14/2024) Medications Medication Sig Dispensed Refills Start Date End Date Status valACYclovir (VALTREX) 1000 MG TabletIndications:Ge nital herpes One pill by mouth once a day 30 Tab 11 01/31/2019 Active Additional Information Patient not taking.Reported on 10/03/2023 28-0.8 MG Oral Tablet Take by mouth. Active documented as of this encounter (statuses as of 02/14/2024) Active Problems Problem Noted Date Diagnosed Date [...] as of this encounter (statuses as of 02/14/2024) Immunizations Name Administration Dates Next Due COVID-19 [...] money to get more. Never true 09/24/2023 [place] Depression Scale Answer Date Recorded [place] Depression Scale Total 2 10/06/2023 The thought [...] Sign Reading Time Taken Comments Blood Pressure 112/64 02/14/2024 8:46 AM EDT Pulse - - Temperature - - Respiratory Rate - - Oxygen Saturation - - Inhaled Oxygen Concentration - - Weight 78 kg (172 lb) 02/14/2024 8:46 AM EDT Height - - Body Mass Index 29.52 12/01/2023 11:02 AM EDT documented in this encounter Progress Notes * Candida Albarran LPN - 02/14/2024 8:47 AM EDT 30w0d Denies vaginal bleeding/rom + movement Bilat leg swelling- left leg very achy and pain behind knee today * Brittani Cleveland CRNP - 02/14/2024 8:45 AM EDT 30w0d Good movement. No ctx, leaking/bleeding. Discussed choosing a wet pan mixer. Reviewed normal 28 week labs. Bilateral leg swelling and discomfort; today noticing increase in pain behind L knee. Legs are sunburnt, so hard to determine erythema. No posterior popliteal pain/edema, pulses bilaterally intact. Will get doppler studies today. 2 week return JUVENAL Hayes documented in this encounter Plan of Treatment Upcoming Encounters Date Type Department Care Team (Late st Contact Info) Description 02/14/2024 10:00 AM EDT Imaging Radiology [address] [place] [id number] Scheduled Orders Name Type Priority Associated Diagnoses Orde r Schedule VASC DUPLEX VENOUS LE UNILAT Medical Imaging Routine Pain in left lower leg Expected: 02/14/2024, Expires: 03/15/2025 Health Maintenance Due Date Last Done Comments [...] simplex virus (HSV) infection in mother affecting Pain in left lower leg documented in this encounter Care Teams Cinder Crew Worker Relationship Specialty Start Date End Date Didier November SONALI Ramesh [facility] [address] [place] [address] PCP - General Physician Garnett Room Worker 08/25/21 documented as of this encounter
--- OUTSIDE RECORDS SUMMARY | 2024-04-24 12:05 | External Medical Summary ---
Author Name Unknown Address Unknown Organization K01:LABORATORY [facility] [place] [address] [place] [address] Laboratory Report Ordering Provider Test Date Status SUNDEEP MORALES 01/31/2024 11:23:26 Final Observation Date Value Abnormality Reference (Units ) Status WBC, Total 01/31/2024 11:23:26 11.68 Above high normal 4 .00-10.80 (K/uL) Final RBC 01/31/2024 11:23:26 4.28 3.85-5.15 (M/uL) Final Hemoglobin 01/31/2024 11:23:26 13.6 12.0-15.3 (g/dL) Final Anemia reflex testing trigge rs on a HGB < 12.0 for Females and HGB < 13.0 for Males in accordance with the WHO Anemia Guidelines
Anemia reflex testing triggers on a HGB < 12.0 for Females and HGB < 13.0 for Males in accordance with the WHO Anemia Guidelines HCT 01/31/2024 11:23:26 39.3 36.0-45.2 (%) Final MCV 01/31/2024 11:23:26 91.8 81.5-97.5 (fL) Final MCH 01/31/2024 11:23:26 31.8 27.0-34.0 (pg) Final MCHC 01/31/2024 11:23:26 34.6 32.0-36.0 (g/dL) Final RDW 01/31/2024 11:23:26 13.2 11.5-15.5 (%) Final Platelets 01/31/2024 11:23:26 230 140-400 (K /uL) Final MPV 01/31/2024 11:23:26 11.2 6.6-11.1 ( fL) Final Nucleated erythrocytes/100 leukocytes [Ratio] in Blood by Automated count 01/31/2024 11:23:26 0 <=0 (/100 WBCs) [facility] Performing Location [facility] - [address] [facility] [address]
--- OUTSIDE RECORDS SUMMARY | 2024-04-24 12:05 | External Medical Summary ---
Author Name Unknown Address Unknown Organization K0G:LABORATORY [facility] [address] - [address] [place] [address] Laboratory Report Ordering Provider Test Date Status SUNDEEP MORALES 01/31/2024 11:23:26 Final Observation Date Value Abnormality Reference (Units ) Status Glucose [Moles/volume] in Serum or Plasma --1 hour post 50 g glucose PO 01/31/2024 11:23:26 123 70-129 (mg/dL) Final Performing Location LABORATORY [facility] [place] [address] - [address] [place] [address]
--- OUTSIDE RECORDS SUMMARY | 2024-04-24 12:05 | External Medical Summary | Summary of Care ---
Author Name Unknown Organization [facility] Address [address] [place] [address] Phone [phone] Care Team Providers Care Hand Fabric Cutter Name Role Phone Katelyn Velásquez PA-C Primary Care Provider [phone] Reason for Visit * Reason Comments Return Visit Encounter Details Date Type Department Care Team (Late st Contact Info) Description 12/01/2023 11:45 AM EDT Office Visit Gynecology/Obstetric s [facility] [address] [place] [address] Lory Ron PA-C [address] [place] [address] Encounter for supervision of normal first in second trimester*; Genital herpes simplex virus (HSV) infection in mother affecting Allergies No known active allergiesdocumented as of this encounter (statuses as of 12/01/2023) Medications Medication Sig Dispensed Refills Start Date End Date Status valACYclovir (VALTREX) 1000 MG TabletIndications:Ge nital herpes One pill by mouth once a day 30 Tab 11 01/31/2019 Active Additional Information Patient not taking.Reported on 10/03/2023 28-0.8 MG Oral Tablet Take by mouth. 0 Active documented as of this encounter (statuses as of 12/01/2023) Active Problems Problem Noted Date Diagnosed Date [...] as of this encounter (statuses as of 12/01/2023) Immunizations Name Administration Dates Next Due COVID-19 [...] money to get more. Never true 09/24/2023 [place] Depression Scale Answer Date Recorded [place] Depression Scale Total 2 10/06/2023 The thought [...] Sign Reading Time Taken Comments Blood Pressure 96/72 12/01/2023 11:02 AM EDT Pulse - - Temperature - - Respiratory Rate - - Oxygen Saturation - - Inhaled Oxygen Concentration - - Weight 72.1 kg (159 lb) 12/01/2023 11:02 AM EDT Height 162.6 cm (5' 4") 12/01/2023 11:02 AM EDT Body Mass Index 27.29 12/01/2023 11:02 AM EDT documented in this encounter Progress Notes * Lory Ron PA-C - 12/01/2023 12:45 PM EDT 19w2d No concerns, anatomy u/s today -- final report pending. + FHT 138 bpm per u/s. Having baby boy! RTC in 4 weeks Lory Ron PA-C documented in this encounter Nursing Notes * Magdalena Adame LPN - 12/01/2023 12:41 PM EDT 19w2d Denies concerns Had anatomy US done today documented in this encounter Plan of Treatment Upcoming Encounters Date Type Department Care Team (Late st Contact Info) Description 01/01/2024 1:45 PM EDT Office Visit Gynecology/Obstetrics [facility] [address] [facility] [place] [address] Lula Chand CNM [address] [place] [id number] Health Maintenance Due Date Last Done Comments [...] Encounter for supervision of normal first in second trimester- Primary Supervision of normal first Genital herpes simplex virus (HSV) infection in mother affecting documented in this encounter Care Teams Hand Fabric Cutter Relationship Specialty Start Date End Date November, PA-C [address] [place] [address] PCP - General Physician Water Control Station Engineer 08/25/21 documented as of this encounter
--- OUTSIDE RECORDS SUMMARY | 2024-04-24 12:05 | External Medical Summary | Summary of Care ---
Author Name Unknown Organization [facility] Address [address] [place] [address] Phone [phone] Care Team Providers Care Industrial Roofer Name Role Phone Didier Katelyn Ramesh PA-C Primary Care Provider [phone] Reason for Visit * Reason Comments Outpatient Testing Encounter Details Date Type Department Care Team (Late st Contact Info) Description 01/31/2024 10:00 AM EDT Laboratory Laboratory, [facility] [address] [place] [id number] [facility] [address] [place] [address] [employer] Other*[id number]; Encounter for supervision of normal first in third trimester Allergies No known active allergiesdocumented as of [...] money to get more. Never true 09/24/2023 [place] Depression Scale Answer Date Recorded [place] Depression Scale Total 2 10/06/2023 The thought [...] on file documented as of this encounter Plan of Treatment Upcoming Encounters Date Type Department Care Team (Late st Contact Info) Description 02/14/2024 8:45 AM EDT Office Visit Gynecology/Obstetrics [facility] [address] [place] [address] Brittani Cleveland CRNP [address] [place] [address] Pending Results Name Type Priority Associated Diagnoses Date /Time MYCODE INITIAL ADULT Lab Routine [employer] Other*[id number] 01/31/2024 11:23 AM EDT CBC WITH WBC DIFFERENTIAL AND ANEMIA REFLEX WORKUP Lab Routine Encounter for supervision of normal first in third trimester 01/31/2024 11:23 AM EDT SYPHILIS ANTIBODY SCREEN WITH REFLEX TO RPR Lab Routine Encounter for supervision of normal first in third trimester 01/31/2024 11:23 AM EDT 50-G GESTATIONAL GLUCOSE, 1 HOUR Lab Routine Encounter for supervision of normal first in third trimester 01/31/2024 11:23 AM EDT MYCODE INITIAL ADULT-PINK Lab Routine [employer] Other*[id number] 01/31/2024 11:23 AM EDT MYCODE SST1 Lab Routine [employer] Other*[id number] 01/31/2024 11:23 AM EDT MYCODE SST2 Lab Routine [employer] Other*[id number] 01/31/2024 11:23 AM EDT ANEMIA CBC Lab Routine Encounter for supervision of normal first in third trimester 01/31/2024 11:23 AM EDT DIFFERENTIAL, AUTOMATED Lab Routine Encounter for supervision of normal first in third trimester 01/31/2024 11:23 AM EDT ANEMIA REFLEX CHEMISTRY HOLD Lab Routine Encounter for supervision of normal first in third trimester 01/31/2024 11:23 AM EDT SYPHILIS ANTIBODY SCREEN Lab Routine Encounter for supervision of normal first in third trimester 01/31/2024 11:23 AM EDT Health Maintenance Due Date Last Done Comments [...] as of this encounter Visit Diagnoses Diagnosis [employer] Other*[id number] Encounter for supervision of normal first in third trimester Supervision of normal first documented in this encounter Care Teams Industrial Roofer Relationship Specialty Start Date End Date Didier November SONALI Ramesh [facility] [place] [address] PCP - General Physician Security Sme 08/25/21 documented as of this encounter
--- OUTSIDE RECORDS SUMMARY | 2024-04-24 12:05 | External Medical Summary | Summary of Care ---
Author Name Unknown Organization [facility] Address [address] [place] [address] Phone [phone] Care Team Providers Care Regional Intermodal Truck Driver Name Role Phone Didier Katelyn Ramesh PA-C Primary Care Provider [phone] Encounter Details Date Type Department Care Team (Late st Contact Info) Description 02/05/2024 Orders Only Outcomes Research Department [address] [place], [place] [id number] Juany Rader [facility] [employer] Other*[id number] Allergies No known active allergiesdocumented as of this encounter (statuses as of 02/05/2024) Medications Medication Sig Dispensed Refills Start Date End Date Status valACYclovir (VALTREX) 1000 MG TabletIndications:Ge nital herpes One pill by mouth once a day 30 Tab 11 01/31/2019 Active Additional Information Patient not taking.Reported on 10/03/2023 28-0.8 MG Oral Tablet Take by mouth. Active documented as of this encounter (statuses as of 02/05/2024) Active Problems Problem Noted Date Diagnosed Date [...] as of this encounter (statuses as of 02/05/2024) Immunizations Name Administration Dates Next Due COVID-19 [...] money to get more. Never true 09/24/2023 [place] Depression Scale Answer Date Recorded [place] Depression Scale Total 2 10/06/2023 The thought [...] 02/14/2024 8:45 AM EDT Office Visit Gynecology/Obstetrics [facility] [address] [place] [address] Brittani Cleveland CRNP [address] [place] [address] Scheduled Orders Name Type Priority Associated Diagnoses Orde r Schedule MYCODE SUBSEQUENT ADULT Lab Routine [employer] Other*[id number] Every 6 Months for 2 Occurrences starting 02/05/2024 until 02/24/2025 Health Maintenance Due Date Last Done Comments [...] this encounter Visit Diagnoses Diagnosis [employer] Other*[id number] documented in this encounter Care Teams Regional Intermodal Truck Driver Relationship Specialty Start Date End Date Didier Katelyn SONALI Ramesh [address] [place] [address] PCP - General Physician Golf Range Attendant 08/25/21 documented as of this encounter
--- OUTSIDE RECORDS SUMMARY | 2024-04-24 12:05 | External Medical Summary | Summary of Care ---
Author Name Unknown Organization [facility] Address [address] [place] [address] Phone [phone] Care Team Providers Care Inspector Bullet Slugs Name Role Phone Katelyn Velásquez PA-C Primary Care Provider [phone] Reason for Visit * Reason Comments Return Visit Encounter Details Date Type Department Care Team (Late st Contact Info) Description 02/28/2024 10:45 AM EDT Office Visit Gynecology/Obstetric s [facility] [address] [place] [address] Lory Ron PA-C [address] [facility] [place] [address] Encounter for supervision of normal first in third trimester*; Genital herpes simplex virus (HSV) infection in mother affecting Allergies No known active allergiesdocumented as of this encounter (statuses as of 02/28/2024) Medications Medication Sig Dispensed Refills Start Date [...] as of this encounter (statuses as of 02/28/2024) Active Problems Problem Noted Date Diagnosed Date [...] as of this encounter (statuses as of 02/28/2024) Immunizations Name Administration Dates Next Due COVID-19 mRNA, LNP-s, No Pre serve, 2-Dose Series (Moderna) 02/12/2021,01/14/2021 DTaP Dipth/Tet/Acell Pertussis (Infanrix), Peds 04/08/1998,06/29/1994,1993,07/28,1993 HIB PRP-T, 4 Dose, PF, IM (Hiberix) 09/1993,1993,1993,05/05 Hepatitis B, 0-19 yrs 06/29/1994,1993,01/1993 MMR - [...] money to get more. Never true 09/24/2023 [place] Depression Scale Answer Date Recorded [place] Depression Scale Total 2 10/06/2023 The thought [...] Sign Reading Time Taken Comments Blood Pressure 114/66 02/28/2024 10:54 AM EDT Pulse - - Temperature - - Respiratory Rate - - Oxygen Saturation - - Inhaled Oxygen Concentration - - Weight 78 kg (172 lb) 02/28/2024 10:54 AM EDT Height - - Body Mass Index 29.52 12/01/2023 11:02 AM EDT documented in this encounter Progress Notes * Lory Ron PA-C - 02/28/2024 11:06 AM EDT 32w0d Doing well. Had some follow up question regarding picking wood fence erector. Reviewed with her today. Would like order for breast pump. Reviewed labor precautions and given precautions/number. Denies VB, LOF, contractions. Pos fm. RTC in 2 weeks Lory Ron PA-C * Mattie Claros MED ASSIST - 02/28/2024 10:54 AM EDT 32w0d Denies vaginal bleeding/rom + movements No new concerns documented in this encounter Plan of Treatment Upcoming Encounters Date Type Department Care Team (Late st Contact Info) Description 03/20/2024 9:45 AM EDT Office Visit Gynecology/Obstetrics [facility] [address] [place] [address] Azra York CRNP [address] [place] [address] Health Maintenance Due Date Last Done Comments [...] affecting documented in this encounter Care Teams Inspector Bullet Slugs Relationship Specialty Start Date End Date Didier November SONALI Ramesh [facility] [address] [place] [address] PCP - General Physician Curriculum Facilitator 08/25/21 documented as of this encounter
--- OUTSIDE RECORDS SUMMARY | 2024-04-24 12:05 | External Medical Summary ---
Author Name Unknown Address Unknown Organization K01:LABORATORY [facility] [place] - [address] [place] [address] Laboratory Report Ordering Provider Test Date Status SUNDEEP MORALES 01/31/2024 11:23:26 Final Observation Date Value Abnormality Reference (Units ) Status Treponema pallidum Ab [Presence] in Serum by Immunoassay 01/31/2024 11:23:26 Nonreactive Nonreactive Final No serologic evidence of syp hilis. No additional testing clinicially indicated at this time. Consider repeat testing in 2-4 weeks if acute or primary syphilis is suspected. Performing Location LABORATORY [facility] [place] - [address] [place] [address]
[2024-04-24] MEDS: miSOPROStoL 50 MCG TAB PO PRN (15:39)
[2024-04-24] MEDS: BUTORPHANOL TARTRATE 2 MG/ML VIAL IV PRN (19:33)
[2024-04-24] MEDS: LACTATED RINGER'S 1,000 ML IV PRN (20:31)
[2024-04-24] MEDS ORDERED: ROPIVACAINE 0.5% PF 5 MG/ML 20 ML VIAL EPI PRN (21:13)
[2024-04-24] MEDS ORDERED: LIDOCAINE 2% MPF LOCAL 5 ML VIAL EPI PRN (21:13)
[2024-04-24] MEDS ORDERED: NALOXONE HCL 0.4 MG/1 ML VIAL/CARP IV PRN (21:13)
[2024-04-24] MEDS ORDERED: diphenhydrAMINE 50 MG/ML VIAL IV PRN (21:13)
[2024-04-24] MEDS ORDERED: SODIUM CHLORIDE 0.9% PF INJ 10 ML VIAL EPI PRN (21:13)
[2024-04-24] MEDS ORDERED: ePHEDrine sulfate 50 MG/ML AMP IV PRN (21:13)
[2024-04-24] MEDS ORDERED: NALOXONE HCL 1 MG in SODIUM CHLORIDE 0.9% 1,000 ML IV PRN (21:13)
[2024-04-24] MEDS ORDERED: fentaNYL citrate PF 100 MCG/2 ML VIAL EPI PRN (21:13)
[2024-04-24] MEDS ORDERED: BUPIVACAINE 0.25% PF 30 ML VIAL EPI PRN (21:13)
[2024-04-24] MEDS ORDERED: NALBUPHINE HCL INJ 10 MG/ML AMP IV PRN (21:13)
--- NOTE | 2024-04-24 21:14 | Anesthesiology Consultation ---
Date of Service April 24, 2024 Assessment & Plan ASA ASA2 Proposed Anesthesia Anesthesia Type: Labor Epidural Risk / Benefits Reviewed With: PT / POA / Parent / Guardian, Accepts Plan and Informed Consent Obtained History Height/Weight Height: 5 ft 5 in Weight: 83.5 kg Allergies Allergy/AdvReac Type Severity Reaction Status Date / Time prednisone AdvReac Agitated Verified 04/24/24 05:01 Medications Home Medications Medication Instructions Recorded Confirmed Last Taken vit no.95-ferrous 1 tab PO DAILY 04/24/24 04/24/24 04/23/24 20:30 fumarate 28 mg-folic acid 800 mcg tablet () valacyclovir 500 mg tablet 500 mg PO BID 04/24/24 04/24/24 04/23/24 20:30 (Valtrex) Active Medications Generic Name Dose Route Start Last Admin Trade Name Freq PRN Reason Stop Dose Admin Butorphanol Tartrate 1 mg 04/24/24 19:11 04/24/24 19:33 Butorphanol Tartrate 2 Mg/Ml Vial IV 05/24/24 19:10 1 mg Q2H PRN Administration Pain Fentanyl/Bupivacaine/Sodium Chlor 100 ml 04/24/24 21:13 04/24/24 21:43 Fentanyl 2 Mcg/Ml Bupivacaine 0.125%-Nss 100ml Bag EPI 04/25/24 21:12 100 ml PRN PRN Administration Pain R/T Labor Protocol Lactated Ringer's 1,000 mls @ 125 mls/hr 04/24/24 05:51 04/24/24 21:05 Lr IV 04/26/24 05:50 125 mls/hr .Q8H PRN Infusion L&D Protocol Protocol Misoprostol 50 mcg 04/24/24 11:09 04/24/24 15:39 Misoprostol 50 Mcg Tab PO 05/24/24 11:14 50 mcg Q4H PRN Administration PER ORDER Past Medical History Medical History (Updated 04/24/24 @ 05:49 by Frederick Mar MD) Herpes genitalia Exercise / Class Metabolic Activity II 4-5 Yardwork/Stairs/Walk up hill Past Surgical History Surgical History (Updated 04/24/24 @ 05:03 by Gerri Posey RN) History of appendectomy Past Anesthesia History No Hx of Anesthesia Complications and No Family Hx of Anesthesia Complications History of PONV No Hx of PONV and No Hx of Motion Sickness Social History Smoking Status: Never smoker Hx Alcohol Use: No Hx Substance Use: No Review of Systems denies fever/cough/ colds/ chest pain/ SOB/ TAYLA denies TAYLA Physical Exam Vital Signs Last Vital Signs Temp 36.7 C 04/24/24 22:00 Pulse 120 H 04/24/24 22:27 Resp 18 04/24/24 21:50 BP 106/68 04/24/24 22:11 Pulse Ox 100 04/24/24 22:27 ENMT Mouth: no TMJ abnormality and no dentition abnormality Thyromental Distance: > or= 3.5 Finger Breadths Mallampati Class: II Neck neck extension not limited Respiratory normal respiratory effort; no respiratory distress Auscultation: lungs clear to auscultation bilaterally Cardiovascular Rate/Rhythm: regular rate and regular rhythm Neurologic moves all extremities Psychiatric Orientation: alert and oriented x 3 Testing Laboratory Results 04/24/24 06:03
[2024-04-24] MEDS: fentANYL 2 MCG/ML BUPIVacaine 0.125%-NSS 100ML BAG EPI PRN (21:43)
[2024-04-24] MEDS: fentaNYL citrate PF 100 MCG/2 ML VIAL EPI STA (21:43)
[2024-04-24] MEDS: BUPIVACAINE 0.25% PF 30 ML VIAL EPI STA (21:43)
[2024-04-24] MEDS: LIDOCAINE 2%/EPINEPHRINE 1:200,000 20 ML PF EPI STA (21:43)
[2024-04-24] MEDS: LIDOCAINE 2%/EPINEPHRINE 1:200,000 20 ML PF ONE (22:00)
[2024-04-24] MEDS: fentANYL 2 MCG/ML BUPIVacaine 0.125%-NSS 100ML BAG ONE (22:00)
[2024-04-24] MEDS: BUPIVACAINE 0.25% PF 30 ML VIAL ONE (22:00)
[2024-04-24] MEDS: SODIUM CHLORIDE 0.9% PF INJ 10 ML VIAL EPI STA (22:00)
[2024-04-24] MEDS: fentaNYL citrate PF 100 MCG/2 ML VIAL ONE (22:00)
[2024-04-24] MEDS: SODIUM CHLORIDE 0.9% PF INJ 10 ML VIAL ONE (22:00)
[2024-04-24] MEDS: OXYTOCIN 30 UNITS/NSS 30 UNITS/500 ML BAG IV PRN (22:47)
[2024-04-25] MEDS: ONDANSETRON INJ 2 MG/ML 2 ML VIAL IV PRN (03:08)
[2024-04-25] MEDS ORDERED: NURSING L&D Epidural Breakthrough Pain Update ONE (03:16)
[2024-04-25] MEDS ORDERED: fentaNYL citrate PF 100 MCG/2 ML VIAL ONE (04:15)
[2024-04-25] MEDS ORDERED: ROPIVACAINE 0.5% 5 MG/ML 30 ML VIAL ONE (04:15)
[2024-04-25] MEDS ORDERED: LIDOCAINE 2% MPF LOCAL 5 ML VIAL ONE (04:15)
[2024-04-25] MEDS: METHYLERGONOVINE MALEATE 0.2 MG/ML AMP IM ONE (05:12)
[2024-04-25] MEDS ORDERED: HYDROCORTISONE ACETATE 25 MG SUPP PR PRN (05:15)
[2024-04-25] MEDS ORDERED: ACETAMINOPHEN W/CODEINE #3 1 TAB PO PRN (05:15)
[2024-04-25] MEDS ORDERED: OXYTOCIN 30 UNITS/NSS 30 UNITS/500 ML BAG IV PRN (05:15)
[2024-04-25] MEDS ORDERED: oxyCODONE/ACETAMINOPHEN 5mg/325mg TAB PO PRN (05:15)
--- NOTE | 2024-04-25 05:21 | Delivery Summary ---
Vaginal Delivery Summary Date of Service April 25, 2024 Vaginal Delivery Summary Patient is a 1 para 1. Followed in the office for care and delivery. Patient is well dated. She was admitted with saroj rupture of membranes at 40 weeks gestation. Soon after she was admitted she was given p.o. Cytotec. Her exam on admission revealed a vertex presentation fairly low. Cervix was posterior and about 1 cm. Given the approximately 3 doses of p.o. Cytotec. And then started on Pitocin and epidural for pain control. Had came down at a good steady rate. The anterior lip of the cervix cleared without any problems. After she pushed for about 30 minutes she had to be redosed for pain control. And then she pushed out a live female via direct occiput anterior position over an intact perineum. Infant was suctioned through the mouth and the nose. Shoulders were delivered without difficulty. Gross meconium was noted at this time. Cord was allowed to pulse for 1 full minute. It was then clamped and cut by the father. Cord blood was taken. Placenta was removed intact. With IV Pitocin running. She was also given an additional shot of Methergine in the upper thigh to control the bleeding. Inspection of the perineum revealed a superficial laceration of the left labia and that extended into the vagina just in back of the hymenal ring. This defect was repaired with a running 3-0 chromic on a small needle. There is also a small tear in the hym enal ring at about 9:00. And this was also repaired with a [id number] suture of 3-0 chromic. Following this hemostasis was good quantitative blood loss was 87 mL patient Toller procedure well Dr. Orosco dictating.
[2024-04-25] MEDS: DIPHTHER/TETAN/PERTUS Vaccine (Tdap, Adol/Adult) 0.5mL IM ONE (06:09)
[2024-04-25] MEDS: ePHEDrine sulfate 50 MG/ML AMP ONE (06:09)
--- NOTE | 2024-04-25 06:30 | Anesthesia Procedure Note ---
Date of Service April 25, 2024 Anesthesia Post Epidural Note Vital Signs Vital Signs: Temp Pulse Resp BP Pulse Ox 36.9 C 80 20 129/88 100 04/25/24 02:40 04/25/24 06:14 04/25/24 06:12 04/25/24 06:14 04/25/24 05:12 Pain Intensity Bilateral Lower Abdomen: Pain Intensity: 9 Notes Mental Status: alert / awake / arousable and participated in evaluation Nausea / Vomiting: adequately controlled Pain: adequately controlled Airway Patency, RR, SpO2: stable & adequate BP & HR: stable & adequate Hydration State: stable & adequate Neuraxial Anesthesia: was administered and sensory block resolved Anesthetic Complications: no major complications apparent and Pt Satisfied with anesthetic care Epidural: Removed without complications and With tip intact
[2024-04-25] MEDS: DOCUSATE SODIUM 100 MG CAP PO SCH (08:47)
[2024-04-25] MEDS: IBUPROFEN 600 MG TAB PO PRN (08:47)
[2024-04-25] MEDS: PRENATAL VITAMIN 1 TAB PO SCH (08:47)
[2024-04-25] MEDS: BENZOCAINE 20% SPRY 85 APPLN/85 GM CAN EXT PRN (09:39)
[2024-04-25] MEDS: ACETAMINOPHEN 325 MG TAB PO PRN (20:41)
[2024-04-26 03:36] VITALS: TEMP 97.9; O2SAT 99
[2024-04-26 07:34] LABS: Hematocrit (blood only) 32.2 % (37.0-47.0); Hemoglobin 11.5 g/dl (12.0-16.0); Mean Corpuscular Hemoglobin 31.8 pg (25.0-34.0); Mean Corpuscular Hgb Conc 35.7 g/dL (32.0-36.0); Mean Platelet Volume 10.8 fL (9.4-12.4); Platelet Count 219 K/uL (130-400); RDW Coefficient of Variation 14.4 % (11.5-14.5); RDW Standard Deviation 46.2 fL (36.4-46.3); Red Blood Count 3.62 M/uL (4.20-5.40); White Blood Count 13.77 K/ul (4.8-10.8)
[2024-04-26 08:32] VITALS: BP 117/64; PULSE 68; RESP 16
--- NOTE | 2024-04-26 08:59 | Obstetrical Progress Note ---
Date of Service April 26, 2024 Assessment & Plan Admission and Anticipated Discharge Date Admission Date: April 24, 2024 Subjective Patient is seen and examined. She feels well, no complaints. Ambulating without dizziness Voiding without difficulty Tolerating regular diet with out N&V Bleeding is minimal No fever/ chills/ CP/ SOB/ N&V/ Leg pain Breast feeding without problems Vital Signs Temp Pulse Resp BP Pulse Ox O2 Del Method 04/26/24 08:30 36.6 C 68 16 117/64 04/26/24 03:34 36.6 C 75 18 110/69 99 Room Air Lab Results 04/24/24 04/24/24 04/26/24 Range/Units 05:40 06:03 06:43 WBC 11.35 H 13.77 H (4.8-10.8) K/ul RBC 4.48 3.62 L (4.20-5.40) M/uL Hgb 14.1 11.5 L (12.0-16.0) g/dl Hct 39.6 32.2 L (37.0-47.0) % MCV 88.4 89.0 (80.0-100.0) fL MCH 31.5 31.8 (25.0-34.0) pg MCHC 35.6 35.7 (32.0-36.0) g/dL RDW Std Deviation 44.6 46.2 (36.4-46.3) fL RDW Coeff of Tommy 13.8 14.4 (11.5-14.5) % Plt Count 237 219 (130-400) K/uL MPV 11.0 10.8 (9.4-12.4) fL Amniotic Protein POS Treponema pallidum Ab Negative (Negative) PE: General: Alert, orientedx3, NAD Abd: soft, NT, fundus firm, below Umbilicus Perineum intact, Lochia rubra minimal Ext; NT, no edema AP: 29 yo s/p , ppd# 1 VSS Afebrile doing well Continue routine care All questions were answered Considering D/C home this evening Results & Data Vital Signs (Past 12 Hours) Vital Signs Temp Pulse Resp BP Pulse Ox O2 Del Method 04/26/24 08:30 36.6 C 68 16 117/64 04/26/24 03:34 36.6 C 75 18 110/69 99 Room Air
[2024-04-26] MEDS ORDERED: bisacodyL 5 MG TABEC PO SCH (20:00)
[2024-04-27] MEDS ORDERED: bisacodyL 10 MG SUPP PR PRN
== END 2024-04-26 16:25 | disposition home or self-care (01) | DRG 807 ==
LOC: OPB 04:38 → 4S1 04:41 → 4E2 04-25 09:25